=== PATIENT | female | born 1985 | race Hispanic/Latino ===

== ENCOUNTER 2024-10-28 13:03 | Emergency (ER) | payer SELFPAY ==
[~2024-10-28] VITALS: Ht 142.2 cm; Wt 57.6 kg
[2024-10-28 13:19] VITALS: BP 119/71
[2024-10-28 13:31] VITALS: BP 114/47
[2024-10-28 13:37] LABS: URINE BILIRUBIN - DIPSTICK Negative (NEGATIVE); URINE BLOOD DIPSTICK Large (NEGATIVE); URINE GLUCOSE - DIPSTICK >=1000 mg/dL (NEGATIVE); URINE KETONE Negative (NEGATIVE); URINE LEUK ESTERASE Negative (NEGATIVE); URINE NITRITE - DIPSTICK Negative (Negative); URINE PROTEIN - DIPSTICK Negative (NEG-TRACE); URINE SPECIFIC GRAVITY 1.015; URINE UROBILINOGEN - DIPSTICK 0.2 E.U./dL (0.2)
[2024-10-28 13:42] LABS: URINE COLOR Pink
[2024-10-28 13:43] LABS: URINE RBC 50-100 RBC/hpf (0-5)
[2024-10-28 13:54] LABS: BASO% 0.3 % (0-3); EOS% 2.8 % (0-8); HEMATOCRIT 40.2 % (37.0-47.0); HEMOGLOBIN 13.8 g/dl (12.0-16.0); IMMATURE GRANULOCYTES 0.2 % (0.0-5.0); LYMPH% 24.5 % (15-41); MEAN CELL VOLUME 88.9 fL CALC (80.0-100.0); MEAN CORPUSCULAR HGB 30.5 pG CALC (26.0-32.0); MEAN CORPUSCULAR HGB CONC 34.3 g/dL CAL (32.0-36.0); MONO% 5.2 % (2-13); NEUT# 6.75 thou/uL (2.00-7.15); RED BLOOD COUNT 4.52 mill/uL (4.20-5.60); RED CELL DISTRI WIDTH 12.4 % (11.5-15.5)
[2024-10-28 14:00] VITALS: BP 107/76
[2024-10-28 14:02] LABS: ALBUMIN 4.4 g/dL (3.2-5.0); BILIRUBIN, TOTAL 0.3 mg/dL (0.02-1.3); CREATININE 0.5 mg/dL (0.5-1.0); POTASSIUM 4.4 mmol/l (3.5-5.1); TOTAL PROTEIN 7.8 g/dL (6.3-8.2)
[2024-10-28 14:30] VITALS: BP 113/71
[2024-10-28 14:56] VITALS: BP 113/71
[2024-10-29] MEDS ORDERED: TRAMADOL HYDROC50 M1 PO (20:03)
[2024-10-29] MEDS ORDERED: NAPROXEN375 MG PO (20:03)
== END 2024-10-28 15:08 | disposition home or self-care (01) | DRG 832 ==
LOC: ED 13:03
PROVIDERS: Family Medicine
DX: O20.0 Threatened abortion (principal); O24.311 Unspecified pre-existing diabetes mellitus in pregnancy, first trimester; O09.521 Supervision of elderly multigravida, first trimester; O09.211 Supervision of pregnancy with history of pre-term labor, first trimester; Z3A.01 Less than 8 weeks gestation of pregnancy

== ENCOUNTER 2024-10-29 18:40 | Emergency (ER) | payer SELFPAY ==
[~2024-10-29] VITALS: Ht 142.2 cm; Wt 57.6 kg
[2024-10-29] MEDS ORDERED: PROMETHAZINE HCL 25 MG/ML AMP IV ONE (19:20)
[2024-10-29] MEDS ORDERED: ACETAMINOPHEN 500 MG TAB PO ONE (19:20)
[2024-10-29] MEDS ORDERED: MORPHINE SULFATE 4 MG/ML VIAL IV ONE (19:20)
[2024-10-29] MEDS ORDERED: SODIUM CHLORIDE 0.9% 1,000 ML IV ONE (19:20)
[2024-10-29 19:26] LABS: BASO% 0.3 % (0-3); EOS% 4.4 % (0-8); HEMATOCRIT 40.3 % (37.0-47.0); HEMOGLOBIN 13.5 g/dl (12.0-16.0); IMMATURE GRANULOCYTES 0.2 % (0.0-5.0); LYMPH% 36.6 % (15-41); MEAN CELL VOLUME 90.2 fL CALC (80.0-100.0); MEAN CORPUSCULAR HGB 30.2 pG CALC (26.0-32.0); MEAN CORPUSCULAR HGB CONC 33.5 g/dL CAL (32.0-36.0); MONO% 5.9 % (2-13); NEUT# 5.31 thou/uL (2.00-7.15); NEUT% 52.6 % (42-76); RED BLOOD COUNT 4.47 mill/uL (4.20-5.60); RED CELL DISTRI WIDTH 12.2 % (11.5-15.5)
[2024-10-29 19:39] LABS: ALBUMIN 4.3 g/dL (3.2-5.0); BILIRUBIN, TOTAL 0.2 mg/dL (0.02-1.3); CREATININE 0.5 mg/dL (0.5-1.0); POTASSIUM 4.1 mmol/l (3.5-5.1); TOTAL PROTEIN 7.5 g/dL (6.3-8.2)
[2024-10-29 19:47] VITALS: BP 113/77
[2024-10-29 20:00] VITALS: BP 123/86
[2024-10-29] MEDS ORDERED: TRAMADOL HYDROC50 M1 PO (20:03)
[2024-10-29] MEDS ORDERED: NAPROXEN375 MG PO (20:03)
[2024-10-29 20:30] VITALS: BP 127/79
[2024-10-29 21:40] VITALS: BP 127/79
== END 2024-10-29 21:40 | disposition home or self-care (01) | DRG 779 ==
LOC: ED 18:40
PROVIDERS: Family Medicine
DX: O03.9 Complete or unspecified spontaneous abortion without complication (principal); E11.9 Type 2 diabetes mellitus without complications
CPT/HCPCS: J2550